=== PATIENT | male | born 1980 | race Caucasian/White ===

== ENCOUNTER → 2022-06-07 14:32 | Outpatient (BNVA) | payer MEDICAID, SELFPAY | PROVIDERS: PCP Family Medicine; Visit Provider Family Medicine | DX: F41.1 Generalized anxiety disorder (principal); F41.0 Panic disorder [episodic paroxysmal anxiety]; F32.9 Major depressive disorder, single episode, unspecified; R45.851 Suicidal ideations; N52.9 Male erectile dysfunction, unspecified; Z79.899 Other long term (current) drug therapy | CPT/HCPCS: 80053; 80061; 82652; 84153; 84443; 85025; 86803; 87806 ==

== ENCOUNTER 2022-07-02 10:08 | Inpatient (IN) | payer MEDICAID, SELFPAY ==
[2022-07-02 10:10] VITALS: BP 131/92; PULSE 90; RESP 18; TEMP 36.8; O2SAT 99; BMI 25.8
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
[2022-07-02 10:15] VITALS: PULSE 78; O2SAT 94
[2022-07-02 10:50] LABS: Basophils # 0.1 10^3/uL (0.0-0.1); Basophils % 0.8 %; Eosinophils # 0.1 10^3/uL (0.0-0.8); Eosinophils % 0.8 %; Hematocrit 49.6 % (42.0-52.0); Hemoglobin 17.4 g/dL (11.7-16.6); Lymphocytes # 2.1 10^3/uL (0.8-4.8); Lymphocytes % 22.2 %; Mean Corpuscular HGB Conc 35.1 g/dL (30.0-36.0); Mean Corpuscular Hemoglobin 29.6 pg (28.0-34.0); Mean Corpuscular Volume 84.5 fl (80-94); Mean Platelet Volume 9.2 fL (7.4-10.4); Monocytes # 0.6 10^3/uL (0.2-0.9); Monocytes % 6.2 %; Neutrophils # 6.49 10^3/uL (1.8-7.7); Neutrophils % 69.7 %; Nucleated Red Blood Cells % 0 %; Platelet Count 315 10^3/cmm (130-400); Red Blood Count 5.87 10^6/uL (4.1-5.3); Red Cell Distribution Width 12.4 % (12.1-15.1); White Blood Count 9.3 10^3/uL (4.0-10.0)
[2022-07-02] MEDS: tetanus-diphtheria tox (adult) 0.5 mL SDV IM (10:55)
[2022-07-02 11:17] LABS: Alanine Aminotransferase 27 U/L (0-41); Albumin Level 4.4 g/dL (3.5-5.2); Alkaline Phosphatase 85 U/L (40-130); Anion Gap 14.6 (5-19); Aspartate Amino Transferase 30 U/L (0-40); Blood Urea Nitrogen 7 mg/dL (6-20); Calcium 9.5 mg/dL (8.5-10.5); Carbon Dioxide 26 mmol/L (22-29); Chloride 103 mmol/L (98-107); Globulin 3.3 g/dL (1.3-4.6); Glomerular Filtration Rate 82.8 mL/min (90-130); Glucose 104 mg/dL (65-115); Osmolality Calculated 288 mOsm/kg (285-295); Potassium 3.6 mmol/L (3.5-5.1); Sodium 140 mmol/L (136-145); Total Bilirubin 0.8 mg/dL (0.15-1.2); Total Protein 7.7 g/dL (6.6-8.7)
[2022-07-02 11:18] LABS: Acetaminophen < 5.0 ug/mL (10-30); Alcohol Level < 10 mg/dL (0-10); Salicylate < 0.3 mg/dL (3-10)
[2022-07-02 11:35] LABS: Amphetamines Screen Urine Negative (Negative); Barbiturates Screen Urine Negative (Negative); Benzodiazepines Screen Urine Negative (Negative); Cocaine Screen Urine Negative (Negative); Opiate Screen Urine Negative (Negative); PCP Screen Urine Negative (Negative); THC Screen Urine Positive (Negative)
[2022-07-02 12:07] VITALS: BP 130/90; PULSE 76; RESP 18; TEMP 36.8; O2SAT 97
[2022-07-02 14:00] VITALS: BP 136/72; PULSE 86; RESP 20; TEMP 36.6; O2SAT 98
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
[2022-07-02] MEDS: BuSPIRONE 10 mg Tablet PO ×2 (16:08→21:13)
[2022-07-02 22:00] VITALS: BP 136/78; PULSE 87; RESP 16; TEMP 36.9; O2SAT 96
[2022-07-03] MEDS: BuSPIRONE 10 mg Tablet PO ×3 (09:57→20:09)
[2022-07-03] MEDS: citalopram 20 mg Tablet PO (09:57)
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
[2022-07-03 13:59] VITALS: BP 137/81; PULSE 63; RESP 18; TEMP 36.6; O2SAT 97
[2022-07-03 20:12] VITALS: BP 126/78; PULSE 62; RESP 16; TEMP 36.9; O2SAT 97
[2022-07-04] MEDS: BuSPIRONE 10 mg Tablet PO ×3 (08:51→20:35)
[2022-07-04] MEDS: citalopram 20 mg Tablet PO (08:51)
[2022-07-04 14:00] VITALS: RESP 17
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
[2022-07-04 20:42] VITALS: BP 133/80; PULSE 63; RESP 18; TEMP 36.6; O2SAT 98
--- NOTE | 2022-07-05 04:54 | PC.NURSE ---
2044 pt given snacks and juice, stated he would try to eat I'm just not hungry pt reports I'm just not hungry day shift has reported pt hasn't eaten in couple days, pt reports drinking fluids. Encouraged to seek staff wiht with concerns or needs
[2022-07-05 05:55] VITALS: RESP 16
[2022-07-05] MEDS: citalopram 20 mg Tablet PO (08:00)
[2022-07-05] MEDS: BuSPIRONE 10 mg Tablet PO ×2 (08:00→14:50)
[2022-07-05 14:00] VITALS: BP 136/96; PULSE 80; RESP 18; TEMP 36.8; O2SAT 95
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
--- NOTE | 2022-07-05 16:42 | PC.NURSE ---
discharge instruction administered to clients pt stated understanding and compliance. pt left via car tender.
[2022-07-05 16:44] VITALS: BP 136/96; PULSE 80; RESP 18; TEMP 36.8; O2SAT 95
== END 2022-07-05 16:45 | DRG 881 ==
LOC: ER 11:25 → NP 11:48
PROVIDERS: Admitting Provider Psychiatry & Neurology Psychiatry; Emergency Provider Physician Assistant; PCP Family Medicine; Visit Provider Psychiatry & Neurology Psychiatry
DX: F32.9 Major depressive disorder, single episode, unspecified (principal); R45.851 Suicidal ideations; F41.0 Panic disorder [episodic paroxysmal anxiety]
CPT/HCPCS: 36415; 80053; 80306; 80307; 85025; 90471; 90714; 99285